=== PATIENT | male | born 1970 | race American Indian/Alaskan Native ===

== ENCOUNTER 2018-12-19 14:12 | Emergency (ER) | payer OTHER ==
[2018-12-19 14:25] VITALS: BP 153/91
--- NOTE | 2018-12-19 14:26 | Emergency Department Report ---
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 tried to roll it up and after complete pain started. Plan xray of back
--- NOTE | 2018-12-19 15:11 | XRay Report ---
PROCEDURE: XR SPINE LUMBOSACRAL 2-3V TECHNIQUE: Lumbar spine radiographs, AP, lateral, and coned-down views. HISTORY: Low back pain COMPARISONS: None . FINDINGS: Alignment: Normal . Vertebral body heights/Disk spaces: Normal . Fracture(s): None . A remote healed fracture of the right L1 transverse process is noted Facets: Normal . Bone mineralization: Normal . IMPRESSION: No acute abnormality. This document is electronically signed by Heather Thakur MD., December 19 2018 03:09:18 PM ET
--- NOTE | 2018-12-19 17:42 | Emergency Department Report ---
ED Back Pain/Injury HPI - General Chief Complaint: Back Pain/Injury Stated Complaint: BACK PAIN Time Seen by Provider: 12/19/18 14:20 Source: patient Limitations: No Limitations - History of Present Illness Initial Comments: Patient is a 48-year-old male who presents to the emergency room with complaints of low back pain that began 2 months ago. He states his pain increased over the last few days. He denies any numbness, weakness, saddle numbness, difficulty walking, or bowel or bladder incontinence. Patient states 2 months ago that he dropped a trailer down that he was trying to lift up which is how his pain originally started. He states also in 2008 had a back injury but is not exactly sure what he did. He denies any past medical history. He denies any allergies to medications. He does not have an orthopedic doctor. - Related Data Previous Rx's Medication Instructions Recorded Last Taken Type Ofloxacin [Floxin] 10 ml OT QID #20 drops 05/24/16 Unknown Rx Ammonium Lactate [Lac-Hydrin 225 gm TP BID #1 bottle 08/30/16 Unknown Rx Lotion] Ibuprofen [Motrin] 600 mg PO Q8H PRN #15 tablet 08/30/16 Unknown Rx cephALEXin [Keflex] 500 mg PO Q8HR #30 cap 08/30/16 Unknown Rx Acetaminophen/Codeine [Tylenol 1 tab PO Q6H PRN #10 tab 12/19/18 Unknown Rx /Codeine # 3 tab] Cyclobenzaprine [Flexeril] 10 mg PO QHS PRN #10 tablet 12/19/18 Unknown Rx Ibuprofen [Motrin 800 MG tab] 800 mg PO Q8HR PRN #20 tablet 12/19/18 Unknown Rx Allergies Allergy/AdvReac Type Severity Reaction Status Date / Time No Known Allergies Allergy Verified 12/19/18 14:13 ED Review of Systems ROS: Stated complaint: BACK PAIN Other details as noted in HPI Comment: All other systems reviewed and negative ED Past Medical Hx - Past Medical History Previous Medical History?: No - Surgical History Past Surgical History?: No - Social History Smoking Status: Never Smoker Substance Use Type: None - Medications Home Medications: Home Medications Medication Instructions Recorded Confirmed Last Taken Type Ofloxacin [Floxin] 10 ml OT QID #20 drops 05/24/16 Unknown Rx Ammonium Lactate [Lac-Hydrin 225 gm TP BID #1 bottle 08/30/16 Unknown Rx Lotion] Ibuprofen [Motrin] 600 mg PO Q8H PRN #15 tablet 08/30/16 Unknown Rx cephALEXin [Keflex] 500 mg PO Q8HR #30 cap 08/30/16 Unknown Rx Acetaminophen/Codeine [Tylenol 1 tab PO Q6H PRN #10 tab 12/19/18 Unknown Rx /Codeine # 3 tab] Cyclobenzaprine [Flexeril] 10 mg PO QHS PRN #10 tablet 12/19/18 Unknown Rx Ibuprofen [Motrin 800 MG tab] 800 mg PO Q8HR PRN #20 tablet 12/19/18 Unknown Rx ED Physical Exam - General Limitations: No Limitations General appearance: alert, in no apparent distress - Head Head exam: Present: atraumatic, normocephalic - Eye Eye exam: Present: normal appearance, PERRL - ENT ENT exam: Present: mucous membranes moist - Neck Neck exam: Present: normal inspection, full ROM. Absent: tenderness - Respiratory Respiratory exam: Present: normal lung sounds bilaterally. Absent: respiratory distress, wheezes, rales, rhonchi, stridor, chest wall tenderness, accessory muscle use, decreased breath sounds, prolonged expiratory - Cardiovascular Cardiovascular Exam: Present: regular rate, normal rhythm, normal heart sounds. Absent: systolic murmur, diastolic murmur, rubs, gallop - Back Exam Back exam: Present: normal inspection, full ROM, other (no tenderness of the C- spine, T-spine, or L-spine upon palpation, no step offs, no deformities). Absent: paraspinal tenderness, vertebral tenderness - Neurological Exam Neurological exam: Present: alert, oriented X3, CN II-XII intact, normal gait. Absent: motor sensory deficit - Psychiatric Psychiatric exam: Present: normal affect, normal mood - Skin Skin exam: Present: warm, dry, intact ED Course Vital Signs 12/19/18 14:23 Temperature 98.4 F Pulse Rate 73 Blood Pressure 153/91 ED Medical Decision Making - Radiology Data Radiology results: report reviewed Ordering Physician: ANANDA INTERIANO Date of Service: 12/19/18 Procedure(s): XR spine lumbosacral 2-3V Accession Number(s): [id number] cc: ANANDA INTERIANO Fluoro Time In Minutes: PROCEDURE: XR SPINE LUMBOSACRAL 2-3V TECHNIQUE: Lumbar spine radiographs, AP, lateral, and coned-down views. HISTORY: Low back pain COMPARISONS: None . FINDINGS: Alignment: Normal . Vertebral body heights/Disk spaces: Normal . Fracture(s): None . A remote healed fracture of the right L1 transverse process is noted Facets: Normal . Bone mineralization: Normal . IMPRESSION: No acute abnormality. This document is electronically signed by Brandin Thakur MD., December 19 2018 03:09:18 PM ET Transcribed By: [facility] Dictated By: BRANDIN THAKUR MD Electronically Authenticated By: BRANDIN THAKUR MD Signed Date/Time: 12/19/18 1511 - Medical Decision Making Patient is a 48-year-old male who presents to the emergency room with complaints of low back pain that began 2 months ago. He states his pain increased over the last few days. He denies any numbness, weakness, saddle numbness, difficulty walking, or bowel or bladder incontinence. Patient states 2 months ago that he dropped a trailer down that he was trying to lift up which is how his pain originally started. He states also in 2008 had a back injury but is not exactly sure what he did. He denies any past medical history. He denies any allergies to medications. He does not have an orthopedic doctor. on exam: no tenderness of the C-spine, T-spine, or L-spine upon palpation, no step offs, no deformities, neuro deficits. on L-spine XR A remote healed fracture of the right L1 transverse process is noted, otherwise no acute process. pt given anti- inflammatory, muscle relaxer, and pain medication. discussed to please take medication as prescribed. Do not drive or operate heavy machinery while taking pain medication or muscle relaxer. Follow-up with Dr. Mart, orthopedic in the next 2-3 days. May use ice, rest, heat, epsom salt bath. Return to the emergency room for any new or worsening symptoms. - Differential Diagnosis strain, sprain, fx, dislocation, DDD, DJD, sciatica Critical care attestation.: If time is entered above; I have spent that time in minutes in the direct care of this critically ill patient, excluding procedure time. ED Disposition Clinical Impression: Low back pain Qualifiers: Chronicity: chronic Back pain laterality: midline Sciatica presence: without sciatica Qualified Code(s): M54.5 - Low back pain Lumbar transverse process fracture Qualifiers: Encounter type: sequela Fracture type: closed Qualified Code(s): S32.009S - Unspecified fracture of unspecified lumbar vertebra, sequela Disposition: TO HOME OR SELFCARE Is pt being admited?: No Does the pt Need Aspirin: No Condition: Stable Instructions: Chronic Back Pain (ED) Additional Instructions: Please take medication as prescribed. Do not drive or operate heavy machinery while taking pain medication or muscle relaxer. Follow-up with Dr. Mart, orthopedic in the next 2-3 days. May use ice, rest, heat, epsom salt bath. Return to the emergency room for any new or worsening symptoms. Prescriptions: Cyclobenzaprine [Flexeril] 10 mg PO QHS PRN #10 tablet PRN Reason: Muscle Spasm Ibuprofen [Motrin 800 MG tab] 800 mg PO Q8HR PRN #20 tablet PRN Reason: Pain, Moderate (4-6) Acetaminophen/Codeine [Tylenol /Codeine # 3 tab] 1 tab PO Q6H PRN #10 tab PRN Reason: Pain , Severe (7-10) Referrals: IKER MART MD [Staff Physician] - 2-3 Days [facility] [Provider Group] - 2-3 Days Time of Disposition: 17:43 Print Language: FRENCH
== END 2018-12-19 17:55 | disposition home or self-care (01) ==
LOC: ED 14:12
DX: S32.019A Unspecified fracture of first lumbar vertebra, initial encounter for closed fracture (principal); X58.XXXA Exposure to other specified factors, initial encounter; Y93.89 Activity, other specified; Y92.89 Other specified places as the place of occurrence of the external cause; Y99.8 Other external cause status
CPT/HCPCS: 72100